=== PATIENT | male | born 1970 | race Caucasian/White ===

== ENCOUNTER 2023-03-14 13:39 | Inpatient (IN) | payer OTHER ==
[2023-03-14 14:42] VITALS: BMI 21.5
[2023-03-14] MEDS ORDERED: P-EPHED 60MG/TRIPROLIDI 2.5MG TABLET PO PRN (16:15)
[2023-03-14] MEDS ORDERED: BENZONATATE 200 MG CAPSULE PO PRN (16:15)
[2023-03-14] MEDS ORDERED: IBUPROFEN 400 MG TABLET (FP) PO PRN (16:15)
[2023-03-14] MEDS ORDERED: BENZOCAINE/MENTHOL (CHLORASEPTIC ) LOZENGE MM PRN (16:15)
[2023-03-14] MEDS ORDERED: MAG HYDROX/AL HYDROX/SIMETH 30 ML UNIT-DOSE CUP PO PRN (16:15)
[2023-03-14] MEDS ORDERED: NICOTINE POLACRILEX 2 MG GUM BUC PRN (16:15)
[2023-03-14] MEDS ORDERED: BISMUTH SUBSALICYLATE 524 MG/30 ML PO PRN (16:15)
[2023-03-14] MEDS ORDERED: NICOTINE 10 MG CARTRIDGE (INHALER) IH PRN (16:15)
[2023-03-14] MEDS ORDERED: DICYCLOMINE HCL 10 MG CAPSULE PO PRN (16:15)
[2023-03-14] MEDS ORDERED: LOPERAMIDE HCL 2 MG CAPSULE PO PRN (16:15)
[2023-03-14] MEDS ORDERED: POLYETHYLENE GLYCOL (HEALTHYLAX) 3350 17 GM PACKET PO PRN (16:15)
[2023-03-14] MEDS ORDERED: guaiFENesin 600 MG TABLET.ER (FP) PO PRN (16:15)
[2023-03-14] MEDS ORDERED: MAGNESIUM HYDROX 2400MG/30ML ORAL SUSPENSION 30 ML CUP PO PRN (16:15)
[2023-03-14] MEDS ORDERED: ACETAMINOPHEN 325 MG TABLET (FP) PO PRN (16:15)
[2023-03-14] MEDS ORDERED: ONDANSETRON *ODT* 4 MG TABLET SL PRN (16:15)
[2023-03-14] MEDS ORDERED: IBUPROFEN 600 MG TABLET (FP) PO PRN (16:15)
[2023-03-14] MEDS: hydrOXYzine PAMOATE 25 MG CAPSULE (FP) PO PRN (22:17)
[2023-03-14] MEDS: THIAMINE HCL 100 MG TABLET (FP) PO SCH (22:17)
[2023-03-14] MEDS: MELATONIN 5 MG TABLETS PO PRN (22:18)
[2023-03-14] MEDS: METHOCARBAMOL 500 MG TABLET PO PRN (22:18)
[2023-03-15] MEDS: PRENATAL VITAMINS W/ FOLIC ACID TABLET (FP) PO SCH (10:11)
[2023-03-15] MEDS: hydrOXYzine PAMOATE 25 MG CAPSULE (FP) PO PRN ×2 (10:11→22:19)
[2023-03-15] MEDS: METHOCARBAMOL 500 MG TABLET PO PRN ×2 (10:11→22:19)
[2023-03-15 11:59] LABS: HEMATOCRIT 39.4 % (35.4-49); HEMOGLOBIN 13.5 GM/dL (11.7-16.9); MCH 30.3 pg (25.7-33.7); MCHC 34.3 g/dl (32.0-35.9); MEAN CELL VOLUME 88.3 fl (80-96); PLATELET COUNT 242 10^3/uL (134-434); RBC 4.46 M/mm3 (4.00-5.60); RDW 13.5 % (11.9-15.9); WHITE BLOOD COUNT 6.5 K/mm3 (4.0-10.0)
[2023-03-15 12:02] LABS: POTASSIUM 4.1 mmol/L (3.5-5.1)
[2023-03-15 12:04] LABS: CALCIUM 9.6 mg/dL (8.5-10.1)
[2023-03-15 12:05] LABS: ALBUMIN 3.4 g/dl (3.4-5.0)
[2023-03-15 12:08] LABS: CREATININE 0.8 mg/dL (0.55-1.3)
[2023-03-15 12:10] LABS: BILIRUBIN,TOTAL 0.3 mg/dL (0.2-1); TOT PROT 6.4 g/dl (6.4-8.2)
[2023-03-15] MEDS: MELATONIN 5 MG TABLETS PO PRN (22:19)
[2023-03-15] MEDS: THIAMINE HCL 100 MG TABLET (FP) PO SCH (22:19)
[2023-03-16] MEDS: METHOCARBAMOL 500 MG TABLET PO PRN (05:22)
[2023-03-16 09:43] VITALS: BP 122/90; PULSE 74; RESP 18; TEMP 97.7
[2023-03-16] MEDS: PRENATAL VITAMINS W/ FOLIC ACID TABLET (FP) PO SCH (10:39)
== END 2023-03-16 11:30 | disposition home or self-care (01) | DRG 774 ==
LOC: YASAS 13:39 → Y6N 16:36
PROVIDERS: ADMIT Allergy & Immunology; ATTEND Surgery
PROC: HZ2ZZZZ Detoxification Services for Substance Abuse Treatment (ICD-10-PCS; principal; 2023-03-14)
DX: F10.20 Alcohol dependence, uncomplicated (principal); F14.20 Cocaine dependence, uncomplicated; F17.210 Nicotine dependence, cigarettes, uncomplicated; Z86.19 Personal history of other infectious and parasitic diseases; Z28.310 Unvaccinated for COVID-19; Z28.9 Immunization not carried out for unspecified reason
CPT/HCPCS: 36415; 80053; 85027; 86593; 86780; 87635; 87811